=== PATIENT | female | born 1975 | race Caucasian/White ===

== ENCOUNTER 2024-07-10 07:58 | Day surgery (SDC) | payer BC ==
[2024-07-10] MEDS ORDERED: Sodium Chloride 0.9% 10 ML Syringe FLUSH PRN (08:00)
[2024-07-10] MEDS ORDERED: Propofol 200 MG/20 ML SDV ONE (08:07)
[2024-07-10] MEDS: Lactated Ringers 1,000 ML IV SCH (08:14)
[2024-07-10 09:55] VITALS: BP 116/72; PULSE 62
== END 2024-07-10 10:00 | disposition home or self-care (01) ==
LOC: LL.SDS 07:58
PROVIDERS: ATTEND Surgery
DX: Z12.11 Encounter for screening for malignant neoplasm of colon (principal)
CPT/HCPCS: J2704; J7120